=== PATIENT | male | born 1980 | race Caucasian/White ===

== ENCOUNTER 2016-09-10 20:16 | Emergency (ER) | payer OTHER, BC ==
[~2016-09-10] VITALS: Ht 172.7 cm; Wt 124.8 kg
[~2016-09-10 20:16] MED LIST: CIPRO500 MG PO; FLAGYL500 MG PO; TYLENOL WITH C1 EACH PO
[2016-09-10] MEDS ORDERED: NAPROXEN500 MG PO (22:39)
[2016-09-10] MEDS ORDERED: SKELAXIN800 MG PO (22:39)
[2016-09-10 22:59] VITALS: BP 134/89
== END 2016-09-10 23:00 | disposition home or self-care (01) ==
LOC: EME 20:16
DX: S16.1XXA Strain of muscle, fascia and tendon at neck level, initial encounter (principal); S09.8XXA Other specified injuries of head, initial encounter; V49.40XA Driver injured in collision with unspecified motor vehicles in traffic accident, initial encounter
CPT/HCPCS: 99281; 99283